=== PATIENT | male | born 1975 | race Caucasian/White ===

== ENCOUNTER 2018-01-08 15:22 | Emergency (ER) | payer OTHER ==
--- NOTE | 2018-01-08 16:31 | EDPHY ---
H & P Stated Complaint: fever, gout to rt foot, dizziness, near syncope Time Seen by Provider: 01/08/18 15:59 HPI/ROS: CHIEF COMPLAINT: "My gout is killing me" HISTORY OF PRESENT ILLNESS: 42-year-old male history of gout, history of chronic NSAID use with recent hospitalization at [facility] secondary to GI bleed, H&H of 9 in 29 with upper endoscopic imaging at that time , told to stop NSAIDs, comes to the ER with his partner complaining of intractable right foot, right knee, left foot pain unresponsive to oral Tylenol. He was unable to sleep last night secondary to pain and a temperature of 37.4 degrees Celsius. He was scheduled see his PCP today and was unable to make it secondary to pain. He states that earlier today when he was getting up from urinating he felt dizziness and fell. No trauma, not described as syncopal episode. However he still describes continued dizziness. He also describes acute anxiety. Denies: Chest pain, dyspnea, abdominal pain, back or flank pain, melena, hematochezia, hematemesis, nausea, vomiting. PRIMARY CARE PROVIDER: Dr. Vinod Mobley REVIEW OF SYSTEMS: A ten point review of systems was performed and is negative with the exception of the items mentioned in the HPI PAST MEDICAL & SURGICAL HISTORY: Gout. Anxiety. Recent GI bleed believed to be more likely secondary to chronic NSAID use for gout treatment. Anemia. SOCIAL HISTORY: Nonsmoker PHYSICAL EXAM (Prior to examination, patient consented to physical exam, hands were washed and my usual and customary physical exam procedures followed) 1) GENERAL: Well-developed, well-nourished, alert and oriented. Appears uncomfortable laying supine 2) HEAD: Normocephalic, atraumatic 3) HEENT: Pupils equal, round, reactive to light bilaterally. Sclera anicteric. [Nasopharynx, oropharynx, clear, no lesions. Moist mucous membrane 4) NECK: Full range of motion, no meningeal signs. 5) LUNGS: Clear auscultation bilaterally, no wheezes, no rhonchi, no retractions. 6) HEART: Regular rate and rhythm, no murmur, no heave, no gallop. 7) ABDOMEN: No guarding, no rebound, no focal tenderness, negative McBurney's, negative Mcguire's, negative Rovsing's, negative peritoneal sign, 8) MUSCULOSKELETAL: Right lower extremity: Right knee is tender to palpation with normal coloration normal temperature. No effusion. Right foot is tender to palpation with discoloration at the 1st MTP joint, no effusion no lymphangitic streaking. Normal temperature. DP PT pulses present and brisk. Negative Homans no palpable cord soft compartments. Left lower extremity: Tender to palpation dorsum left foot with no visible or palpable abnormality normal color normal temperature. DP PT pulses present and brisk. Soft compartments. Otherwise, Moving all extremities, no focal areas of tenderness, no obvious trauma. No peripheral edema or discoloration. 9) BACK: No CVA tenderness, no midline vertebral tenderness, no fluctuance, no step-off, no obvious trauma, no visual or palpable abnormality. 10) SKIN: No rash, no petechiae. 11) Psychiatric: Patient is oriented X 3, there is no agitation. DIFFERENTIAL DIAGNOSIS: In no particular include but limited to GI bleed, acute gouty arthritis, septic arthritis - Personal History Current Tetanus/Diphtheria Vaccine: Yes Current Tetanus Diphtheria and Acellular Pertussis (TDAP): Yes Tetanus Vaccine Date: 2016 - Medical/Surgical History Hx Asthma: No Hx Chronic Respiratory Disease: No Hx Diabetes: No Hx Cardiac Disease: No Hx Renal Disease: No Hx Cirrhosis: No Hx Alcoholism: No Hx HIV/AIDS: No Hx Splenectomy or Spleen Trauma: No Other PMH: stomach ulcer, gout, htn diet controlled, knee surgery - Social History Smoking Status: Never smoked Constitutional: Initial Vital Signs Temperature (C) 37.4 C 01/08/18 15:35 Heart Rate 108 H 01/08/18 15:35 Respiratory Rate 18 01/08/18 15:35 Blood Pressure 123/105 H 01/08/18 15:35 O2 Sat (%) 100 01/08/18 15:35 O2 Delivery Mode Room Air Allergies/Adverse Reactions: erythromycin base Allergy (Verified 01/08/18 15:34) Home Medications: Medication Instructions Recorded Herbals/Supplements -Info Only 01/08/18 Iron 01/08/18 LORazepam [Ativan 1 mg (RX)] 1 mg PO Q6 PRN #7 tab 01/08/18 Protonix 01/08/18 predniSONE [Prednisone] 20 mg PO DAILY #15 tablet 01/08/18 Medical Decision Making ED Course/Re-evaluation: 4:40 p.m.: I reviewed the patient's old medical records from [facility] including his gastroenterology consultation, laboratory studies notable for H&H of 9 in . Will check EKG as he is complaining of dizziness, will administer benzodiazepine as he is complaining of acute anxiety, will check laboratory studies including H and H given his history of anemia and GI bleed. 5:00 p.m.: H&H 10 and 30, normocytic. This is improvement verses his recent hospitalization at [facility]. 5:07 p.m.: Patient's creatinine is within normal limits. At this time I will administer IV Decadron. Discussed the indications risks benefits of steroids. I Think he would benefit from a short course of steroids. He concurs and agrees. 6:13 p.m. re-evaluation after IV Decadron, Ativan. He is feeling improvement. Given his pain is controlled. He would like to be discharged home. I offered admission which he declines. Discussed his H&H. Recommend he continue his proton pump inhibitor. Recommend close follow-up with Dr. Vinod Mobley his PCP. Will plan on discharge with short course of prednisone taper as well as small prescription for Ativan as needed for anxiety. Doubt septic arthritis. - Data Points Laboratory Results: Laboratory Results 01/08/18 16:38 01/08/18 16:38 01/08/18 01/08/18 16:38 16:38 WBC 10.04 10^3/uL H 10^3/uL (3.80-9.50) RBC 3.51 10^6/uL L 10^6/uL (4.40-6.38) Hgb 10.0 g/dL L g/dL (13.7-17.5) Hct 30.3 % L % (40.0-51.0) MCV 86.3 fL fL (81.5-99.8) MCH 28.5 pg pg (27.9-34.1) MCHC 33.0 g/dL g/dL (32.4-36.7) RDW 13.4 % % (11.5-15.2) Plt Count 316 10^3/uL 10^3/uL (150-400) MPV 9.9 fL fL (8.7-11.7) Neut % (Auto) 85.7 % H % (39.3-74.2) Lymph % (Auto) 6.0 % L % (15.0-45.0) [place] % (Auto) 7.8 % % (4.5-13.0) Eos % (Auto) 0.0 % L % (0.6-7.6) Baso % (Auto) 0.1 % L % (0.3-1.7) Nucleat RBC Rel Count 0.0 % % (0.0-0.2) Absolute Neuts (auto) 8.61 10^3/uL H 10^3/uL (1.70-6.50) Absolute Lymphs (auto) 0.60 10^3/uL L 10^3/uL (1.00-3.00) Absolute Monos (auto) 0.78 10^3/uL 10^3/uL (0.30-0.80) Absolute Eos (auto) 0.00 10^3/uL L 10^3/uL (0.03-0.40) Absolute Basos (auto) 0.01 10^3/uL L 10^3/uL (0.02-0.10) Absolute Nucleated RBC 0.00 10^3/uL 10^3/uL (0-0.01) Immature Gran % 0.4 % % (0.0-1.1) Immature Gran # 0.04 10^3/uL 10^3/uL (0.00-0.10) Sodium 136 mEq/L mEq/L (135-145) Potassium 3.6 mEq/L mEq/L (3.3-5.0) Chloride 104 mEq/L mEq/L (97-110) Carbon Dioxide 23 mEq/l mEq/l (22-31) Anion Gap 9 mEq/L mEq/L (8-16) BUN 11 mg/dL mg/dL (7-23) Creatinine 0.9 mg/dL mg/dL (0.7-1.3) Estimated GFR > 60 Glucose 120 mg/dL H mg/dL (70-100) Uric Acid 8.2 mg/dL mg/dL (3.5-8.5) Calcium 9.4 mg/dL mg/dL (8.5-10.4) Medications Given: Discontinued Medications Dexamethasone (Decadron Injection) 10 mg IVP EDNOW ONE Stop: 01/08/18 17:09 Last Admin: 01/08/18 17:23 Dose: 10 mg Sodium Chloride (Ns) 1,000 mls @ 0 mls/hr IV ONCE ONE PRN Reason: Wide Open Stop: 01/08/18 17:27 Last Admin: 01/08/18 17:31 Dose: 1,000 mls Lorazepam (Ativan Injection) 1 mg IVP EDNOW ONE Stop: 01/08/18 17:27 Last Admin: 01/08/18 17:31 Dose: 1 mg Departure - Departure Disposition: Home, Routine, Self-Care Clinical Impression: Gouty arthritis Condition: Good Instructions: Gout (ED) Additional Instructions: Return to the ER if you develop new or worsening symptoms, if you develop fever chills or any other symptoms that concern you. Referrals: VINOD MOBLEY [Primary Care Provider] - 2-3 days, call for appt. Prescriptions: LORazepam [Ativan 1 mg (RX)] 1 mg PO Q6 PRN #7 tab PRN Reason: Anxiety predniSONE [Prednisone] 20 mg PO DAILY #15 tablet
--- NOTE | 2018-01-08 16:41 | CPEKG ---
Heart Rate: 76 RR Interval: 789 P-R Interval: 156 QRSD Interval: 100 QT Interval: 336 QTC Interval: 378 P [place]: 33 QRS [place]: 68 T Wave [place]: 14 EKG Severity - NORMAL ECG - EKG Impression: SINUS RHYTHM EKG Impression: BORDERLINE ST ELEVATION IN V1/V2 Electronically Signed By: Dao Cerrato 10-Jan-2018 16:21:26
[2018-01-08 16:55] LABS: PLATELET COUNT 316 10^3/uL (150-400)
[2018-01-08] MEDS ORDERED: DEXAMETHASONE 10 MG/ML VIAL IVP ONE (17:08)
[2018-01-08] MEDS ORDERED: LORazepam 2 MG/ML INJ IVP ONE (17:26)
[2018-01-08] MEDS ORDERED: NS 1,000 ML IV ONE (17:26)
[2018-01-08 18:26] VITALS: BP 138/73
== END 2018-01-08 18:50 | disposition home or self-care (01) ==
DX: M10.9 Gout, unspecified (principal); I10 Essential (primary) hypertension; R42 Dizziness and giddiness
CPT/HCPCS: 96374; J1100; J2060